=== PATIENT | male | born 1935 | race Caucasian/White ===

== ENCOUNTER 2017-12-17 13:06 | Emergency (ER) | payer MEDICARE, OTHER ==
--- NOTE | 2017-12-17 14:25 | EDM.PDOC ---
ED HPI GENERAL MEDICAL PROBLEM - General Chief Complaint: Cardiovascular Problem Stated Complaint: from clinic Time Seen by Provider: 12/17/17 14:10 Source of Information: Reports: Patient, Provider, RN History Limitations: Reports: No Limitations - History of Present Illness INITIAL COMMENTS - FREE TEXT/NARRATIVE: 82 yo male presented to the clinic today for light-headedness/mild dizziness that began this morning at the beginning of his morning walk. Says he didn't get very far and turned around and went home. No recent fever, diarrhea, melena or vomiting. He thinks he has had an irregular heart beat in the past. [place]. Here with his . Upon seeing his abnormal EKG in the clinic he was taken to the ER for further eval. Onset: Today Onset Date: 12/17/17 Onset Time: 08:30 Duration: Hour(s): Location: Reports: Head (mild dizziness, not when lying), Generalized Quality: Reports: Other (no pain) Severity: Mild Improves with: Reports: Other (lying) Worsens with: Reports: Other (walking/standing) Associated Symptoms: Reports: No Other Symptoms Treatments SMALL BUSINESS CONSULTANT: Reports: Other (see below) (none) Bilateral Shoulder Pain Score (Numeric/FACES): 1 - Related Data Allergies Allergy/AdvReac Type Severity Reaction Status Date / Time amoxicillin Allergy Rash Verified 12/17/17 13:56 Penicillins Allergy Rash Verified 12/17/17 13:56 Home Meds: Home Meds Etodolac [Etodolac] 400 mg PO BID 12/17/17 [History] Finasteride [Finasteride] 5 mg PO DAILY 12/17/17 [History] Flunisolide [Nasalide Nasal [place]] 2 spray IH BEDTIME 12/17/17 [History] Gabapentin [Neurontin] 300 mg PO BEDTIME 12/17/17 [History] Hydrochlorothiazide [Hydrochlorothiazide] 25 mg PO DAILY 12/17/17 [History] Multivitamin [Multivitamins] 1 tab PO DAILY 12/17/17 [History] Omeprazole [Omeprazole] 20 mg PO DAILY 12/17/17 [History] Psyllium Husk [Psyllium] 1 cap PO DAILY 12/17/17 [History] Tamsulosin HCl [Tamsulosin HCl] 1 cap PO DAILY 12/17/17 [History] Past Medical History HEENT History: Reports: Allergic Rhinitis, Hard of Hearing, Impaired Vision Gastrointestinal History: Reports: GERD Genitourinary History: Reports: Prostate Disorder, Renal Calculus Musculoskeletal History: Reports: Fracture Dermatologic History: Reports: Other (See Below) Other Dermatologic History: rash on face, treated - Infectious Disease History Infectious Disease History: Reports: Chicken Pox, Hepatitis A, Influenza - Past Surgical History HEENT Surgical History: Reports: Polypectomy Male Surgical History: Reports: Vasectomy Social & Family History - Tobacco Use Smoking Status *Q: Former Smoker Used Tobacco, but Quit: Yes Month Tobacco Last Used: 1961 - Caffeine Use Caffeine Use: Reports: Coffee - Recreational Drug Use Recreational Drug Use: No ED ROS GENERAL - Review of Systems Review Of Systems: See Below Constitutional: Reports: No Symptoms HEENT: Reports: No Symptoms Respiratory: Reports: No Symptoms Cardiovascular: Reports: Lightheadedness (walking/standing) Endocrine: Reports: No Symptoms GI/Abdominal: Reports: No Symptoms : Reports: No Symptoms Musculoskeletal: Reports: No Symptoms Skin: Reports: No Symptoms Neurological: Reports: No Symptoms ED EXAM, GENERAL - Physical Exam Exam: See Below Exam Limited By: No Limitations General Appearance: Alert, WD/WN, No Apparent Distress Eye Exam: Bilateral Eye: Normal Inspection, PERRL Ears: Normal External Exam, Normal Canal, Hearing Grossly Normal, Normal TMs Ear Exam: Bilateral Ear: Auricle Normal, Canal Normal, TM normal Nose: Normal Inspection, Normal Mucosa, No Blood Throat/Mouth: Normal Inspection, Normal Lips, Normal Oropharynx, Normal Voice, No Airway Compromise Head: Atraumatic, Normocephalic Neck: Normal Inspection, Supple, Non-Tender Respiratory/Chest: No Respiratory Distress, Lungs Clear, Normal Breath Sounds, No Accessory Muscle Use Cardiovascular: Irregularly Irregular GI/Abdominal: Normal Bowel Sounds, Soft, Non-Tender, No Distention Back Exam: Normal Inspection. No: CVA Tenderness (R), CVA Tenderness (L) Extremities: Normal Inspection, Normal Range of Motion, Non-Tender, No Pedal Edema Neurological: Alert, Oriented, CN II-XII Intact, Normal Cognition, No Motor/ Sensory Deficits Psychiatric: Normal Affect, Normal Mood Skin Exam: Warm, Dry, Intact, Normal Color, No Rash Lymphatic: No Adenopathy Course - Vital Signs Text/Narrative:: magnesium 400 mg po Orthostats borderline, not symptomatic Walked around the loop in the ER, no dizziness Last Recorded V/S: Last Vital Signs Temp 35.7 C 12/17/17 14:02 Pulse 70 12/17/17 14:02 Resp 10 L 12/17/17 14:02 BP 143/80 H 12/17/17 14:02 Pulse Ox 98 12/17/17 14:02 Orthostatic Blood Pressure [ 104/64 Standing] Orthostatic Blood Pressure [ 100/56 Sitting] Orthostatic Blood Pressure [ 124/64 Supine] - Orders/Labs/Meds Orders: Active Orders 24 hr Category Date Time Status Cardiac Monitoring [RC] .As Directed Care 12/17/17 14:19 Active Orthostatic Vital Signs [RC] ASDIRECTED Care 12/17/17 14:20 Active Magnesium Oxide Med 12/17/17 15:22 Once 400 mg PO ONETIME ONE Labs: Laboratory Tests 12/17/17 12/17/17 12/17/17 Range/Units 14:36 14:36 14:36 WBC 10.2 (4.5-11.0) K/uL RBC 4.77 (4.30-5.90) M/uL Hgb 15.2 H (12.0-15.0) g/dL Hct 43.5 (40.0-54.0) % MCV 91 (80-98) fL MCH 32 H (27-31) pg MCHC 35 (32-36) % Plt Count 203 (150-400) K/uL Sodium 138 L (140-148) mmol/L Potassium 4.7 (3.6-5.2) mmol/L Chloride 105 (100-108) mmol/L Carbon Dioxide 27 (21-32) mmol/L Anion Gap 10.7 (5.0-14.0) mmol/L BUN 21 H (7-18) mg/dL Creatinine 1.2 (0.8-1.3) mg/dL Est Cr Clr Drug Dosing 48.95 mL/min Estimated GFR (MDRD) 58 L (>60) Glucose 116 H (74-106) mg/dL Calcium 8.9 (8.5-10.1) mg/dL Magnesium 1.7 L (1.8-2.4) mg/dL Troponin I < 0.017 (0.000-0.056) ng/mL Departure - Departure Time of Disposition: 15:30 Disposition: Home, Self-Care 01 Condition: Good Clinical Impression: Dizziness, Premature ventricular beats, Hypomagnesemia, Hard stool Referrals: Conrado Mcclellan MD [Primary Care Provider] - Forms: ED Department Discharge - My Orders Last 24 Hours: My Active Orders 12/17/17 14:19 Cardiac Monitoring [RC] .As Directed 12/17/17 14:20 Orthostatic Vital Signs [RC] ASDIRECTED 12/17/17 15:22 Magnesium Oxide 400 mg PO ONETIME ONE - Assessment/Plan Last 24 Hours: My Active Orders 12/17/17 14:19 Cardiac Monitoring [RC] .As Directed 12/17/17 14:20 Orthostatic Vital Signs [RC] ASDIRECTED 12/17/17 15:22 Magnesium Oxide 400 mg PO ONETIME ONE
[2017-12-17] MEDS ORDERED: Magnesium Oxide 400 MG Tab PO ONE (15:22)
== END 2017-12-17 15:47 | disposition home or self-care (01) ==
LOC: JP.ED 13:06
DX: I49.3 Ventricular premature depolarization (principal); E83.42 Hypomagnesemia; K21.9 Gastro-esophageal reflux disease without esophagitis; Z88.1 Allergy status to other antibiotic agents; Z88.0 Allergy status to penicillin; Z79.899 Other long term (current) drug therapy; Z87.891 Personal history of nicotine dependence
CPT/HCPCS: 36415; 80048; 83735; 84484; 85027; 99284; A9270

== ENCOUNTER 2017-12-29 06:17 | Day surgery (SDC) | payer MEDICARE, OTHER ==
[2017-12-29] MEDS ORDERED: Sodium Chloride 0.9% 1,000 ML IV SCH (07:00)
[2017-12-29] MEDS ORDERED: fentaNYL 100 MCG/2 ML SDV ONE (07:50)
[2017-12-29] MEDS ORDERED: Propofol 200 MG/20 ML SDV ONE (07:50)
[2017-12-29] MEDS ORDERED: Midazolam 1 MG/ML 2 ML SDV ONE (07:50)
--- NOTE | 2017-12-29 10:02 | OR ---
DATE OF PROCEDURE: 12/29/2017 PROCEDURE: 1. EGD. 2. Colonoscopy. FINDINGS: 1. No evidence of old or new blood. 2. Diverticulosis, mild, limited to the sigmoid colon. 3. No other gross abnormality. COMPLICATIONS: None. SENIOR IT BUSINESS ANALYST: None. ANESTHESIA: MAC. PREOPERATIVE DIAGNOSIS: GI bleeding. POSTOPERATIVE DIAGNOSIS: GI bleeding. RISKS: Risks, benefits, alternatives, limitations including, but not limited to infection, bleeding, and perforation were explained to the patient who wished to proceed. PROCEDURE IN DETAIL: The patient was placed in left lateral decubitus position. The EGD scope was introduced and advanced atraumatically into the duodenum. Including the bulb itself, there was no evidence of ulceration or duodenitis. In the stomach, there was no gastritis, ulceration, or hiatal hernia. The GE junction showed very mild reflux but appropriate for age. The esophagus was normal. A digital rectal exam was performed without abnormality. Scope was introduced and advanced atraumatically to the ileocecal valve. The scope was brought back to the ascending, transverse, descending colon, and retroflexed. No old or new blood. No masses. No polyps. No colitis. The most likely etiology of the patient is history of GI bleeding and some very mild external hemorrhoids he had or the diverticulosis. Either way, there is no active bleeding or old bleeding at this time. The patient tolerated the procedure well. Bryce Maxwell MD /[id number]
== END 2017-12-29 10:59 | disposition home or self-care (01) ==
LOC: JP.SDS 06:17
PROVIDERS: ATTEND Surgery
DX: K57.30 Diverticulosis of large intestine without perforation or abscess without bleeding (principal); K64.4 Residual hemorrhoidal skin tags; K21.9 Gastro-esophageal reflux disease without esophagitis; I10 Essential (primary) hypertension; Z88.0 Allergy status to penicillin; Z88.1 Allergy status to other antibiotic agents
CPT/HCPCS: J2250; J2704; J3010; J7040

== ENCOUNTER 2019-02-27 10:31 | Observation (INO) | payer MEDICARE, OTHER ==
--- NOTE | 2019-02-27 11:45 | CRLCR ---
INDICATION: chest pain TECHNIQUE: Chest 1 view. COMPARISON: 05/30/15 FINDINGS: Cardiovascular and mediastinum: Heart size and vasculature are normal in caliber and appearance. Mediastinum is within normal limits. Lungs and pleural space: Lungs are clear. No sign of infiltrate or mass. No sign of pleural effusion. No pneumothorax. Bones and soft tissues: No significant findings. IMPRESSION: Unremarkable chest. Dictated by: Santo Drake MD @ 02/27/2019 11:44:58 (Electronically Signed)
[2019-02-27] MEDS ORDERED: Sodium Chloride 0.9% 10 ML Syringe FLUSH PRN (11:50)
--- NOTE | 2019-02-27 14:35 | EDM.PDOC ---
ED HPI GENERAL MEDICAL PROBLEM - General Chief Complaint: Chest Pain Stated Complaint: CHEST PAIN Time Seen by Provider: 02/27/19 10:50 Source of Information: Reports: Patient History Limitations: Reports: No Limitations - History of Present Illness INITIAL COMMENTS - FREE TEXT/NARRATIVE: pt arrived with a history of feeling dizzy at times and being quite forgetful. He had an episode of severe left chest pain . He thinks he could have passed out. When he had the pain. When he woke up he was soaked and wet. He did not have chest pain when he woke up. Onset: Today, Other ( sudden during the nite. ) Duration: Hour(s): Location: Reports: Chest Associated Symptoms: Reports: Chest Pain, Diaphoresis - Related Data Allergies Allergy/AdvReac Type Severity Reaction Status Date / Time amoxicillin Allergy Rash Verified 02/27/19 13:09 Penicillins Allergy Rash Verified 02/27/19 13:09 Home Meds: Home Meds Multivitamin [Multivitamins] 1 tab PO DAILY 12/17/17 [History] Omeprazole 20 mg PO DAILY 12/17/17 [History] Tamsulosin HCl 1 cap PO DAILY 12/17/17 [History] hydroCHLOROthiazide [Hydrochlorothiazide] 25 mg PO DAILY 12/17/17 [History] Magnesium Oxide 500 mg PO DAILY 12/27/17 [History] Psyllium Husk [Psyllium] 1 cap PO DAILY 12/27/17 [History] Finasteride 5 mg PO DAILY 12/29/17 [History] Melatonin/Pyridoxine HCl (B6) [Melatonin 3 mg Tablet] 1 each PO BEDTIME [History] Past Medical History HEENT History: Reports: Allergic Rhinitis, Hard of Hearing, Impaired Vision Gastrointestinal History: Reports: GERD Genitourinary History: Reports: Prostate Disorder, Renal Calculus Musculoskeletal History: Reports: Fracture Neurological History: Reports: None Dermatologic History: Reports: Other (See Below) Other Dermatologic History: rash on face, treated - Infectious Disease History Infectious Disease History: Reports: Chicken Pox, Hepatitis A, Measles, Mumps - Past Surgical History HEENT Surgical History: Reports: Polypectomy GI Surgical History: Reports: Colonoscopy, EGD Male Surgical History: Reports: Vasectomy Neurological Surgical History: Reports: Lumbar Spine Social & Family History - Family History Family Medical History: Noncontributory - Tobacco Use Smoking Status *Q: Never Smoker - Caffeine Use Caffeine Use: Reports: Coffee - Recreational Drug Use Recreational Drug Use: Yes ED ROS GENERAL - Review of Systems Review Of Systems: See Below Constitutional: Reports: No Symptoms HEENT: Reports: No Symptoms Respiratory: Reports: No Symptoms Cardiovascular: Reports: Chest Pain Endocrine: Reports: No Symptoms GI/Abdominal: Reports: No Symptoms : Reports: No Symptoms Musculoskeletal: Reports: Other (pt has severe left sided chest pain) ED EXAM, GENERAL - Physical Exam Exam: See Below Free Text/Narrative:: pt arrived with pain in the left chest which occurred during the nite. Exam Limited By: No Limitations General Appearance: Alert, No Apparent Distress, Anxious, Other (pupils are equal and reactive. ) Ears: Normal TMs Nose: Normal Inspection Throat/Mouth: Normal Inspection Head: Atraumatic Neck: Normal Inspection Respiratory/Chest: No Respiratory Distress Cardiovascular: Regular Rate, Rhythm GI/Abdominal: Soft, Non-Tender (Male) Exam: Deferred Rectal (Males) Exam: Deferred Back Exam: Normal Inspection Extremities: Normal Inspection Neurological: Alert, Oriented, Normal Cognition Psychiatric: Normal Affect Course - Vital Signs Last Recorded V/S: Last Vital Signs Temp 35.5 C 02/27/19 10:48 Pulse 62 02/27/19 10:48 Resp 14 02/27/19 10:48 BP 144/56 H 02/27/19 10:48 Pulse Ox 99 02/27/19 10:48 - Orders/Labs/Meds Orders: Active Orders 24 hr Category Date Time Status Cardiac Monitoring [RC] .As Directed Care 02/27/19 10:55 Active EKG Documentation Completion [RC] ASDIRECTED Care 02/27/19 11:03 Active Sodium Chloride 0.9% [Saline Flush] Med 02/27/19 11:50 Active 10 ml FLUSH ASDIRECTED PRN Saline Lock Insert [OM.PC] Routine Oth 02/27/19 11:50 Ordered EKG 12 Lead [EK] Routine Ther 02/27/19 11:03 Ordered Medication Orders Sodium Chloride (Saline Flush) 10 ml FLUSH ASDIRECTED PRN PRN Reason: Keep Vein Open Last Admin: 02/27/19 13:16 Dose: 10 ml Labs: Laboratory Tests 02/27/19 02/27/19 02/27/19 Range/Units 11:07 11:07 11:07 WBC 4.8 (4.5-11.0) K/uL RBC 4.26 L (4.30-5.90) M/uL Hgb 13.4 (12.0-15.0) g/dL Hct 39.6 L (40.0-54.0) % MCV 93 (80-98) fL MCH 32 H (27-31) pg MCHC 34 (32-36) % Plt Count 216 (150-400) K/uL Neut % (Auto) 53 (36-66) % Lymph % (Auto) 31 (24-44) % [place] % (Auto) 14 H (2-6) % Eos % (Auto) 2 (2-4) % Baso % (Auto) 1 (0-1) % Sodium 137 L (140-148) mmol/L Potassium 3.9 (3.6-5.2) mmol/L Chloride 103 (100-108) mmol/L Carbon Dioxide 28 (21-32) mmol/L Anion Gap 9.9 (5.0-14.0) mmol/L BUN 12 (7-18) mg/dL Creatinine 1.1 (0.8-1.3) mg/dL Est Cr Clr Drug Dosing 48.75 mL/min Estimated GFR (MDRD) > 60 (>60) Glucose 120 H (74-106) mg/dL Calcium 9.0 (8.5-10.1) mg/dL Magnesium (1.8-2.4) mg/dL Total Bilirubin 0.5 (0.2-1.0) mg/dL AST 28 (15-37) U/L ALT 24 (12-78) U/L Alkaline Phosphatase 64 (46-116) U/L Troponin I < 0.017 (0.000-0.056) ng/mL Total Protein 6.7 (6.4-8.2) g/dL Albumin 3.2 L (3.4-5.0) g/dL Globulin 3.5 (2.3-3.5) g/dL Albumin/Globulin Ratio 0.9 L (1.2-2.2) Urine Color Urine Appearance Urine pH (4.5-8.0) Ur Specific [place] (1.008-1.030) Urine Protein (NEGATIVE) mg/dL Urine Glucose (UA) (NEGATIVE) mg/dL Urine Ketones (NEGATIVE) mg/dL Urine Occult Blood (NEGATIVE) Urine Nitrite (NEGAITVE) Urine Bilirubin (NEGATIVE) Urine Urobilinogen (NORMAL) mg/dL Ur Leukocyte Esterase (NEGATIVE) Urine RBC (0-5) Urine WBC (0-5) Ur Epithelial Cells Amorphous Sediment Urine Bacteria Urine Mucus 02/27/19 02/27/19 02/27/19 Range/Units 11:35 12:27 13:55 WBC (4.5-11.0) K/uL RBC (4.30-5.90) M/uL Hgb (12.0-15.0) g/dL Hct (40.0-54.0) % MCV (80-98) fL MCH (27-31) pg MCHC (32-36) % Plt Count (150-400) K/uL Neut % (Auto) (36-66) % Lymph % (Auto) (24-44) % [place] % (Auto) (2-6) % Eos % (Auto) (2-4) % Baso % (Auto) (0-1) % Sodium (140-148) mmol/L Potassium (3.6-5.2) mmol/L Chloride (100-108) mmol/L Carbon Dioxide (21-32) mmol/L Anion Gap (5.0-14.0) mmol/L BUN (7-18) mg/dL Creatinine (0.8-1.3) mg/dL Est Cr Clr Drug Dosing mL/min Estimated GFR (MDRD) (>60) Glucose (74-106) mg/dL Calcium (8.5-10.1) mg/dL Magnesium 1.8 (1.8-2.4) mg/dL Total Bilirubin (0.2-1.0) mg/dL AST (15-37) U/L ALT (12-78) U/L Alkaline Phosphatase (46-116) U/L Troponin I < 0.017 (0.000-0.056) ng/mL Total Protein (6.4-8.2) g/dL Albumin (3.4-5.0) g/dL Globulin (2.3-3.5) g/dL Albumin/Globulin Ratio (1.2-2.2) Urine Color Yellow Urine Appearance Clear Urine pH 7.0 (4.5-8.0) Ur Specific [place] 1.015 (1.008-1.030) Urine Protein Negative (NEGATIVE) mg/dL Urine Glucose (UA) Normal (NEGATIVE) mg/dL Urine Ketones Negative (NEGATIVE) mg/dL Urine Occult Blood Negative (NEGATIVE) Urine Nitrite Negative (NEGAITVE) Urine Bilirubin Negative (NEGATIVE) Urine Urobilinogen Normal (NORMAL) mg/dL Ur Leukocyte Esterase Negative (NEGATIVE) Urine RBC Not seen (0-5) Urine WBC 0-5 (0-5) Ur Epithelial Cells Not seen Amorphous Sediment Not seen Urine Bacteria Not seen Urine Mucus Not seen Meds: Medications Generic Name Dose Route Start Last Admin Trade Name Freq PRN Reason Stop Dose Admin Sodium Chloride 10 ml 02/27/19 11:50 02/27/19 13:16 Saline Flush FLUSH 10 ml ASDIRECTED PRN Administration Keep Vein Open - Re-Assessments/Exams Free Text/Narrative Re-Assessment/Exam: 02/27/19 14:36 ekg shows bigeminal pvcs with a effective rate of 30 at times. He has a normal trop. His other labs look good. Departure - Departure Time of Disposition: 14:51 Disposition: Admitted As Inpatient 65 Condition: Fair Clinical Impression: Ventricular bigeminy, Bradyarrhythmia, Chest pain Referrals: PCP,None [Primary Care Provider] - Care Plan Goals: admit to Dr tavarez. - My Orders Last 24 Hours: My Active Orders 02/27/19 10:55 Cardiac Monitoring [RC] .As Directed 02/27/19 11:03 EKG Documentation Completion [RC] ASDIRECTED EKG 12 Lead [EK] Routine 02/27/19 11:50 Sodium Chloride 0.9% [Saline Flush] 10 ml FLUSH ASDIRECTED PRN Saline Lock Insert [OM.PC] Routine - Assessment/Plan Last 24 Hours: My Active Orders 02/27/19 10:55 Cardiac Monitoring [RC] .As Directed 02/27/19 11:03 EKG Documentation Completion [RC] ASDIRECTED EKG 12 Lead [EK] Routine 02/27/19 11:50 Sodium Chloride 0.9% [Saline Flush] 10 ml FLUSH ASDIRECTED PRN Saline Lock Insert [OM.PC] Routine
--- NOTE | 2019-02-27 15:16 | PCM.HP ---
H&P History of Present Illness - General Date of Service: 02/27/19 Admit Problem/Dx: Admission Diagnosis/Problem Admission Diagnosis/Problem Chest pain Source of Information: Patient, Provider History Limitations: Reports: No Limitations - History of Present Illness Initial Comments - Free Text/Narative: Keyon presents to the emergency room today following an episode of chest pain last night. He reports that he has been in his usual state of health. Last night he woke up in the middle of the night to check on his . After getting a drink of water and returning to bed he developed very mild chest pain that he has difficulty describing. This was located in the left lower portion of his chest near the nipple. He thinks the pain was therefore a couple of minutes. He didn't notice shortness of breath or nausea at the time. He's not quite sure if he fell back to sleep or if he passed out. He woke up a while later but not sure how much later and realized that he was extremely diaphoretic and had to change out of his shirt and pants. He has not had recurrence of the chest pain since that time. The pain was so short lived he didn't have a chance to take anything for it. He's never had pain like this in the past. He walks 1/2-1 mile at least once a day unless the weather is bad. He has never had shortness of breath or dyspnea with this exertion. No nausea or abdominal pain. No sick contacts or travel. He feels well but his daughter urged him to come in and get checked out. Workup in the emergency room has revealed bigeminy on EKG and cardiac monitoring. His heart rates been in the 60s. Laboratory studies are all very reassuring including 2 troponin levels that have been negative. Initially there was some concern that the PVCs were not perfusing but currently they are perfusing very well. He will be admitted for observation. - Related Data Allergies/Adverse Reactions: Allergies Allergy/AdvReac Type Severity Reaction Status Date / Time amoxicillin Allergy Rash Verified 02/27/19 13:09 Penicillins Allergy Rash Verified 02/27/19 13:09 Home Medications: Home Meds Multivitamin [Multivitamins] 1 tab PO DAILY 12/17/17 [History] Omeprazole 20 mg PO DAILY 12/17/17 [History] Tamsulosin HCl 1 cap PO DAILY 12/17/17 [History] hydroCHLOROthiazide [Hydrochlorothiazide] 25 mg PO DAILY 12/17/17 [History] Magnesium Oxide 500 mg PO DAILY 12/27/17 [History] Psyllium Husk [Psyllium] 1 cap PO DAILY 12/27/17 [History] Finasteride 5 mg PO DAILY 12/29/17 [History] Melatonin/Pyridoxine HCl (B6) [Melatonin 3 mg Tablet] 1 each PO BEDTIME [History] Past Medical History HEENT History: Reports: Allergic Rhinitis, Hard of Hearing, Impaired Vision Gastrointestinal History: Reports: GERD Genitourinary History: Reports: Prostate Disorder, Renal Calculus Musculoskeletal History: Reports: Fracture Neurological History: Reports: None Dermatologic History: Reports: Other (See Below) Other Dermatologic History: rash on face, treated - Infectious Disease History Infectious Disease History: Reports: Chicken Pox, Hepatitis A, Measles, Mumps - Past Surgical History HEENT Surgical History: Reports: Polypectomy GI Surgical History: Reports: Colonoscopy, EGD Male Surgical History: Reports: Vasectomy Neurological Surgical History: Reports: Lumbar Spine Social & Family History - Family History Family Medical History: Noncontributory - Tobacco Use Smoking Status *Q: Never Smoker - Caffeine Use Caffeine Use: Reports: Coffee - Alcohol Use Alcohol Use History: Yes Alcohol Use in Last Twelve Months: Yes Alcohol Use Frequency: Monthly - Recreational Drug Use Recreational Drug Use: Yes H&P Review of Systems - Review of Systems: Review Of Systems: See Below Free Text/Narrative: A complete 12 point review of systems was obtained. Pertinent positives and negatives are noted in the history of present illness. All other systems were reviewed and were negative except as noted. Exam - Exam Exam: See Below - Vital Signs Vital Signs: Last Vital Signs Temp 35.5 C 02/27/19 10:48 Pulse 67 02/27/19 15:08 Resp 15 02/27/19 15:08 BP 119/71 02/27/19 15:08 Pulse Ox 96 02/27/19 15:08 Weight: 68.946 kg - Exam Quality Assessment: No: Supplemental Oxygen General: Alert, Oriented, Cooperative. No: Mild Distress HEENT: Conjunctiva Clear, Mucosa Moist & [place]. No: Scleral Icterus Neck: Supple, Trachea Midline. No: Lymphadenopathy Lungs: Clear to Auscultation, Normal Respiratory Effort Cardiovascular: Regular Rate, Irregular Rhythm. No: Systolic Murmur GI/Abdominal Exam: Normal Bowel Sounds, Soft, Non-Tender, No Distention Back Exam: Normal Inspection, Full Range of Motion Extremities: No Pedal Edema. No: Increased Warmth Peripheral Pulses: 2+: Dorsalis Pedis (L), Dorsalis Pedis (R) Skin: Warm, Dry Neuro Extensive - Mental Status: Alert, Oriented x3, Nl Response to Commands Neuro Extensive - Motor, Sensory, Reflexes: CN II-XII Intact. No: Dysarthria, Abnormal Motor, Tremor Psychiatric: Alert, Normal Affect - Patient Data Lab Results Last 24 hrs: Laboratory Results - last 24 hr 02/27/19 02/27/19 02/27/19 Range/Units 11:07 11:07 11:07 WBC 4.8 (4.5-11.0) K/uL RBC 4.26 L (4.30-5.90) M/uL Hgb 13.4 (12.0-15.0) g/dL Hct 39.6 L (40.0-54.0) % MCV 93 (80-98) fL MCH 32 H (27-31) pg MCHC 34 (32-36) % Plt Count 216 (150-400) K/uL Neut % (Auto) 53 (36-66) % Lymph % (Auto) 31 (24-44) % [place] % (Auto) 14 H (2-6) % Eos % (Auto) 2 (2-4) % Baso % (Auto) 1 (0-1) % Sodium 137 L (140-148) mmol/L Potassium 3.9 (3.6-5.2) mmol/L Chloride 103 (100-108) mmol/L Carbon Dioxide 28 (21-32) mmol/L Anion Gap 9.9 (5.0-14.0) mmol/L BUN 12 (7-18) mg/dL Creatinine 1.1 (0.8-1.3) mg/dL Est Cr Clr Drug Dosing 48.75 mL/min Estimated GFR (MDRD) > 60 (>60) Glucose 120 H (74-106) mg/dL Calcium 9.0 (8.5-10.1) mg/dL Magnesium (1.8-2.4) mg/dL Total Bilirubin 0.5 (0.2-1.0) mg/dL AST 28 (15-37) U/L ALT 24 (12-78) U/L Alkaline Phosphatase 64 (46-116) U/L Troponin I < 0.017 (0.000-0.056) ng/mL Total Protein 6.7 (6.4-8.2) g/dL Albumin 3.2 L (3.4-5.0) g/dL Globulin 3.5 (2.3-3.5) g/dL Albumin/Globulin Ratio 0.9 L (1.2-2.2) Urine Color Urine Appearance Urine pH (4.5-8.0) Ur Specific [place] (1.008-1.030) Urine Protein (NEGATIVE) mg/dL Urine Glucose (UA) (NEGATIVE) mg/dL Urine Ketones (NEGATIVE) mg/dL Urine Occult Blood (NEGATIVE) Urine Nitrite (NEGAITVE) Urine Bilirubin (NEGATIVE) Urine Urobilinogen (NORMAL) mg/dL Ur Leukocyte Esterase (NEGATIVE) Urine RBC (0-5) Urine WBC (0-5) Ur Epithelial Cells Amorphous Sediment Urine Bacteria Urine Mucus 02/27/19 02/27/19 02/27/19 Range/Units 11:35 12:27 13:55 WBC (4.5-11.0) K/uL RBC (4.30-5.90) M/uL Hgb (12.0-15.0) g/dL Hct (40.0-54.0) % MCV (80-98) fL MCH (27-31) pg MCHC (32-36) % Plt Count (150-400) K/uL Neut % (Auto) (36-66) % Lymph % (Auto) (24-44) % [place] % (Auto) (2-6) % Eos % (Auto) (2-4) % Baso % (Auto) (0-1) % Sodium (140-148) mmol/L Potassium (3.6-5.2) mmol/L Chloride (100-108) mmol/L Carbon Dioxide (21-32) mmol/L Anion Gap (5.0-14.0) mmol/L BUN (7-18) mg/dL Creatinine (0.8-1.3) mg/dL Est Cr Clr Drug Dosing mL/min Estimated GFR (MDRD) (>60) Glucose (74-106) mg/dL Calcium (8.5-10.1) mg/dL Magnesium 1.8 (1.8-2.4) mg/dL Total Bilirubin (0.2-1.0) mg/dL AST (15-37) U/L ALT (12-78) U/L Alkaline Phosphatase (46-116) U/L Troponin I < 0.017 (0.000-0.056) ng/mL Total Protein (6.4-8.2) g/dL Albumin (3.4-5.0) g/dL Globulin (2.3-3.5) g/dL Albumin/Globulin Ratio (1.2-2.2) Urine Color Yellow Urine Appearance Clear Urine pH 7.0 (4.5-8.0) Ur Specific [place] 1.015 (1.008-1.030) Urine Protein Negative (NEGATIVE) mg/dL Urine Glucose (UA) Normal (NEGATIVE) mg/dL Urine Ketones Negative (NEGATIVE) mg/dL Urine Occult Blood Negative (NEGATIVE) Urine Nitrite Negative (NEGAITVE) Urine Bilirubin Negative (NEGATIVE) Urine Urobilinogen Normal (NORMAL) mg/dL Ur Leukocyte Esterase Negative (NEGATIVE) Urine RBC Not seen (0-5) Urine WBC 0-5 (0-5) Ur Epithelial Cells Not seen Amorphous Sediment Not seen Urine Bacteria Not seen Urine Mucus Not seen Result Diagrams: 02/27/19 11:07 02/27/19 11:07 Imaging Impressions Last 24 hrs: CXR - images personally reviewed - lungs are clear, heart size is normal. No mass or effusion. EKG INTERPRETATION EKG Date: 02/27/19 Rhythm: Other (bigeminy) Rate (Beats/Min): 62 [place]: Normal P-Wave: Variable QRS: Normal ST-T: Normal QT: Normal Comparison: NA - No Prior EKG EKG Interpretation Comments: The EKG image was personally reviewed but I could not find one for comparison *Q Meaningful Use (ADM) - VTE Risk Assess *Q Each Risk Factor Represents 1 Point: None Total Score 1 Point Risk Factors: 0 Each Risk Factor Represents 2 Points: None Total Score 2 Point Risk Factors: 0 Each Risk Factor Represents 3 Points: Age 75 Years or Greater Total Score 3 Point Risk Factors: 3 Each Risk Factor Represents 5 Points: None Total Score 5 Point Risk Factors: 0 Venous Thromboembolism Risk Factor Score *Q: 3 - Problem List (1) Chest pain SNOMED Code(s): 02028070 ICD Code: R07.9 - CHEST PAIN, UNSPECIFIED Status: Acute Current Visit: Yes Qualifiers: Chest pain type: precordial pain Qualified Code(s): R07.2 - Precordial pain (2) Ventricular bigeminy SNOMED Code(s): 99279904 ICD Code: I49.9 - CARDIAC ARRHYTHMIA, UNSPECIFIED Status: Acute Current Visit: Yes Problem List Initiated/Reviewed/Updated: Yes Orders Last 24hrs: Active Orders 24 hr Category Date Time Status Patient Status Manage Transfer [TRANSFER] Routine ADT 02/27/19 15:09 Ordered Cardiac Monitoring [RC] .As Directed Care 02/27/19 10:55 Active EKG Documentation Completion [RC] ASDIRECTED Care 02/27/19 11:03 Active Sodium Chloride 0.9% [Saline Flush] Med 02/27/19 11:50 Active 10 ml FLUSH ASDIRECTED PRN Saline Lock Insert [OM.PC] Routine Oth 02/27/19 11:50 Ordered Resuscitation Status Routine Resus Stat 02/27/19 15:11 Ordered EKG 12 Lead [EK] Routine Ther 02/27/19 11:03 Ordered Medication Orders Sodium Chloride (Saline Flush) 10 ml FLUSH ASDIRECTED PRN PRN Reason: Keep Vein Open Last Admin: 02/27/19 13:16 Dose: 10 ml Assessment/Plan Comment:: ASSESSMENT AND PLAN - Chest pain - this sounds like atypical chest pain but was accompanied by an episode of possible syncope and significant diaphoresis. He has a good functional status and 2 negative troponin so I don't believe this represents an acute coronary syndrome. Arrhythmia is certainly high on the list at this time with either a tachycardic or bradycardic dysrhythmia. He has bigeminy on EKG cardiac monitoring but appears to be perfusing well and asymptomatic at this time. He does not have a history of heart disease. -Cardiac monitoring -3rd troponin -Consider outpatient Holter if no dysrhythmia discovered BPH - Symptoms stable -Continue home meds Essential hypertension - Blood pressure normal and electrolytes stable. -Continue home meds Maintenance issues - - DVT prophylaxis - patient will be ambulatory - GI prophylaxis - Not indicated - Nutrition - Regular - [place] catheter - Not indicated CODE STATUS - Full code Admission justification - Patient will be referred observation status for cardiac monitoring Disposition - I would anticipate discharge home tomorrow Primary care physician - IRENE Sherwood M.D.
[2019-02-27] MEDS ORDERED: Ondansetron 4 MG Tab.DIS PO PRN (16:21)
[2019-02-27] MEDS ORDERED: Acetaminophen 325 MG Tab PO PRN (16:21)
[2019-02-27] MEDS ORDERED: Melatonin 3 MG Tab PO SCH (21:00)
--- NOTE | 2019-02-28 08:53 | PCM.DCSUM1 ---
Discharge Summary - Hospital Course Brief History: 83-year-old male with history of BPH and hypertension who presented the morning after having an episode of chest pain and diaphoresis. He was admitted for chest pain rule out and cardiac monitoring. Diagnosis: Stroke: No - Discharge Data Discharge Date: 02/28/19 Discharge Disposition: Home, Self-Care 01 Condition: Good - Discharge Diagnosis/Problem(s) (1) Chest pain SNOMED Code(s): 18110957 ICD Code: R07.9 - CHEST PAIN, UNSPECIFIED Status: Acute Qualifiers: Chest pain type: precordial pain Qualified Code(s): R07.2 - Precordial pain (2) Ventricular bigeminy SNOMED Code(s): 63647790 ICD Code: I49.9 - CARDIAC ARRHYTHMIA, UNSPECIFIED Status: Acute - Patient Summary/Data Hospital Course: Keyon presented to the emergency room the morning after having an episode of mild chest pain and diaphoresis the night before. Workup in the emergency room was reassuring other than bigeminy noted on his telemetry monitoring. Blood pressure was stable. 2 troponin levels were unremarkable. With the bigeminy and the significant episode of diaphoresis he was admitted for cardiac monitoring and additional observation. A third troponin level came back undetectable. Overnight he remained in bigeminy with a stable heart rate around 60. It did rise slightly with activity. He has been asymptomatic. He has not had any chest pain or diaphoresis. He has been up and walking around without any difficulty. He does not have any palpitations with the bigeminy. He has no history of heart disease. We discussed potential additional workup either in the hospital or as an outpatient. I don't believe he needs a stress test at this point because he can walk a mile with no limitations. We did discuss the possibility of an echocardiogram but at this point he feels well and does not wish to pursue any more testing. He was agreeable to additional testing if he has additional episodes or develops symptoms. He will be following up with his primary care at the [place] as needed if symptoms return. - Patient Instructions Diet: Regular Diet as Tolerated Activity: As Tolerated Driving: May Drive Today Showering/Bathing: May Shower Notify Provider of: Fever, Increased Pain, Nausea and/or Vomiting Other/Special Instructions: 1. You were in the hospital for observation after an episode of chest pain with diaphoresis. We found that you have a heart rhythm called bigeminy where you have a regular heartbeat followed by an early beat. This pattern repeats itself over and over. There is no particular treatment necessary at this time. If you develop symptoms of palpitations or if you have recurrent chest pain then we should further investigate your coronary arteries (stress test) and heart structure (echocardiogram). 2. Continue your usual medications as previously prescribed. 3. Seek medical attention if fever greater than 101, chest pain, significant shortness of breath or palpitations. - Discharge Plan *PRESCRIPTION DRUG MONITORING PROGRAM REVIEWED*: Not Applicable *COPY OF PRESCRIPTION DRUG MONITORING REPORT IN PATIENT MYRNA: Not Applicable Home Medications: Home Meds Multivitamin [Multivitamins] 1 tab PO DAILY 12/17/17 [History] Omeprazole 20 mg PO DAILY 12/17/17 [History] Tamsulosin HCl 1 cap PO DAILY 12/17/17 [History] hydroCHLOROthiazide [Hydrochlorothiazide] 25 mg PO DAILY 12/17/17 [History] Magnesium Oxide 500 mg PO DAILY 12/27/17 [History] Psyllium Husk [Psyllium] 1 cap PO DAILY 12/27/17 [History] Finasteride 5 mg PO DAILY 12/29/17 [History] Melatonin/Pyridoxine HCl (B6) [Melatonin 3 mg Tablet] 1 each PO BEDTIME [History] Oxygen Therapy Mode: Room Air Patient Handouts: Palpitations Referrals: PCP,None [Primary Care Provider] - [facility] - Discharge Summary/Plan Comment DC Time >30 min.: No - Patient Data Vitals - Most Recent: Last Vital Signs Temp 35.1 C L 02/28/19 07:28 Pulse 62 02/28/19 07:28 Resp 14 02/28/19 07:28 BP 139/67 02/28/19 07:28 Pulse Ox 97 02/28/19 07:28 Weight - Most Recent: 68.946 kg I&O - Last 24 hours: Intake & Output 02/27/19 02/28/19 02/28/19 22:59 06:59 14:59 Intake Total 240 Balance 240 Lab Results - Last 24 hrs: Laboratory Results - last 24 hr 02/27/19 02/27/19 02/27/19 Range/Units 11:07 11:07 11:07 WBC 4.8 (4.5-11.0) K/uL RBC 4.26 L (4.30-5.90) M/uL Hgb 13.4 (12.0-15.0) g/dL Hct 39.6 L (40.0-54.0) % MCV 93 (80-98) fL MCH 32 H (27-31) pg MCHC 34 (32-36) % Plt Count 216 (150-400) K/uL Neut % (Auto) 53 (36-66) % Lymph % (Auto) 31 (24-44) % [place] % (Auto) 14 H (2-6) % Eos % (Auto) 2 (2-4) % Baso % (Auto) 1 (0-1) % Sodium 137 L (140-148) mmol/L Potassium 3.9 (3.6-5.2) mmol/L Chloride 103 (100-108) mmol/L Carbon Dioxide 28 (21-32) mmol/L Anion Gap 9.9 (5.0-14.0) mmol/L BUN 12 (7-18) mg/dL Creatinine 1.1 (0.8-1.3) mg/dL Est Cr Clr Drug Dosing 48.75 mL/min Estimated GFR (MDRD) > 60 (>60) Glucose 120 H (74-106) mg/dL Calcium 9.0 (8.5-10.1) mg/dL Magnesium (1.8-2.4) mg/dL Total Bilirubin 0.5 (0.2-1.0) mg/dL AST 28 (15-37) U/L ALT 24 (12-78) U/L Alkaline Phosphatase 64 (46-116) U/L Troponin I < 0.017 (0.000-0.056) ng/mL Total Protein 6.7 (6.4-8.2) g/dL Albumin 3.2 L (3.4-5.0) g/dL Globulin 3.5 (2.3-3.5) g/dL Albumin/Globulin Ratio 0.9 L (1.2-2.2) Urine Color Urine Appearance Urine pH (4.5-8.0) Ur Specific [place] (1.008-1.030) Urine Protein (NEGATIVE) mg/dL Urine Glucose (UA) (NEGATIVE) mg/dL Urine Ketones (NEGATIVE) mg/dL Urine Occult Blood (NEGATIVE) Urine Nitrite (NEGAITVE) Urine Bilirubin (NEGATIVE) Urine Urobilinogen (NORMAL) mg/dL Ur Leukocyte Esterase (NEGATIVE) Urine RBC (0-5) Urine WBC (0-5) Ur Epithelial Cells Amorphous Sediment Urine Bacteria Urine Mucus 02/27/19 02/27/19 02/27/19 Range/Units 11:35 12:27 13:55 WBC (4.5-11.0) K/uL RBC (4.30-5.90) M/uL Hgb (12.0-15.0) g/dL Hct (40.0-54.0) % MCV (80-98) fL MCH (27-31) pg MCHC (32-36) % Plt Count (150-400) K/uL Neut % (Auto) (36-66) % Lymph % (Auto) (24-44) % [place] % (Auto) (2-6) % Eos % (Auto) (2-4) % Baso % (Auto) (0-1) % Sodium (140-148) mmol/L Potassium (3.6-5.2) mmol/L Chloride (100-108) mmol/L Carbon Dioxide (21-32) mmol/L Anion Gap (5.0-14.0) mmol/L BUN (7-18) mg/dL Creatinine (0.8-1.3) mg/dL Est Cr Clr Drug Dosing mL/min Estimated GFR (MDRD) (>60) Glucose (74-106) mg/dL Calcium (8.5-10.1) mg/dL Magnesium 1.8 (1.8-2.4) mg/dL Total Bilirubin (0.2-1.0) mg/dL AST (15-37) U/L ALT (12-78) U/L Alkaline Phosphatase (46-116) U/L Troponin I < 0.017 (0.000-0.056) ng/mL Total Protein (6.4-8.2) g/dL Albumin (3.4-5.0) g/dL Globulin (2.3-3.5) g/dL Albumin/Globulin Ratio (1.2-2.2) Urine Color Yellow Urine Appearance Clear Urine pH 7.0 (4.5-8.0) Ur Specific [place] 1.015 (1.008-1.030) Urine Protein Negative (NEGATIVE) mg/dL Urine Glucose (UA) Normal (NEGATIVE) mg/dL Urine Ketones Negative (NEGATIVE) mg/dL Urine Occult Blood Negative (NEGATIVE) Urine Nitrite Negative (NEGAITVE) Urine Bilirubin Negative (NEGATIVE) Urine Urobilinogen Normal (NORMAL) mg/dL Ur Leukocyte Esterase Negative (NEGATIVE) Urine RBC Not seen (0-5) Urine WBC 0-5 (0-5) Ur Epithelial Cells Not seen Amorphous Sediment Not seen Urine Bacteria Not seen Urine Mucus Not seen 02/27/19 Range/Units 19:15 WBC (4.5-11.0) K/uL RBC (4.30-5.90) M/uL Hgb (12.0-15.0) g/dL Hct (40.0-54.0) % MCV (80-98) fL MCH (27-31) pg MCHC (32-36) % Plt Count (150-400) K/uL Neut % (Auto) (36-66) % Lymph % (Auto) (24-44) % [place] % (Auto) (2-6) % Eos % (Auto) (2-4) % Baso % (Auto) (0-1) % Sodium (140-148) mmol/L Potassium (3.6-5.2) mmol/L Chloride (100-108) mmol/L Carbon Dioxide (21-32) mmol/L Anion Gap (5.0-14.0) mmol/L BUN (7-18) mg/dL Creatinine (0.8-1.3) mg/dL Est Cr Clr Drug Dosing mL/min Estimated GFR (MDRD) (>60) Glucose (74-106) mg/dL Calcium (8.5-10.1) mg/dL Magnesium (1.8-2.4) mg/dL Total Bilirubin (0.2-1.0) mg/dL AST (15-37) U/L ALT (12-78) U/L Alkaline Phosphatase (46-116) U/L Troponin I < 0.017 (0.000-0.056) ng/mL Total Protein (6.4-8.2) g/dL Albumin (3.4-5.0) g/dL Globulin (2.3-3.5) g/dL Albumin/Globulin Ratio (1.2-2.2) Urine Color Urine Appearance Urine pH (4.5-8.0) Ur Specific [place] (1.008-1.030) Urine Protein (NEGATIVE) mg/dL Urine Glucose (UA) (NEGATIVE) mg/dL Urine Ketones (NEGATIVE) mg/dL Urine Occult Blood (NEGATIVE) Urine Nitrite (NEGAITVE) Urine Bilirubin (NEGATIVE) Urine Urobilinogen (NORMAL) mg/dL Ur Leukocyte Esterase (NEGATIVE) Urine RBC (0-5) Urine WBC (0-5) Ur Epithelial Cells Amorphous Sediment Urine Bacteria Urine Mucus Med Orders - Current: Current Medications Acetaminophen (Tylenol) 650 mg PO Q4H PRN PRN Reason: Pain (Mild 1-3)/fever Finasteride (Proscar) 5 mg PO DAILY [facility] Hydrochlorothiazide (Hydrochlorothiazide) 25 mg PO DAILY [facility] Magnesium Oxide (Magnesium Oxide) 400 mg PO DAILY [facility] Melatonin (Melatonin) 6 mg PO BEDTIME [facility] Last Admin: 02/27/19 20:45 Dose: 6 mg (Omeprazole [ Omeprazole] 20 Mg)* Nf* 20 mg PO DAILY [facility] Ondansetron HCl (Zofran Odt) 4 mg PO Q6H PRN PRN Reason: Nausea able to take PO Psyllium Husk (Metamucil Sugar Free) 1 pkt PO DAILY [facility] Sodium Chloride (Saline Flush) 10 ml FLUSH ASDIRECTED PRN PRN Reason: Keep Vein Open Last Admin: 02/27/19 13:16 Dose: 10 ml Tamsulosin HCl (Flomax) 0.4 mg PO DAILY [facility] - Exam Quality Assessment: Denies: Supplemental Oxygen General: Reports: Alert, Oriented, Cooperative, No Acute Distress Lungs: Reports: Normal Respiratory Effort Cardiovascular: Reports: Regular Rate, Irregular Rhythm, Other (bigeminy) GI/Abdominal Exam: Soft, No Distention Extremities: No Pedal Edema. No: Increased Warmth Psy/Mental Status: Reports: Alert, Normal Affect
[2019-02-28] MEDS ORDERED: Psyllium Husk Powder Sugar Free 5.85 GM Packet PO SCH (09:00)
[2019-02-28] MEDS ORDERED: Hydrochlorothiazide 25 MG Tab PO SCH (09:00)
[2019-02-28] MEDS ORDERED: Finasteride 5 MG Tab PO SCH (09:00)
[2019-02-28] MEDS ORDERED: Magnesium Oxide 400 MG Tab PO SCH (09:00)
[2019-02-28] MEDS ORDERED: Tamsulosin 0.4 MG Cap.ER PO SCH (09:00)
== END 2019-02-28 09:04 | disposition home or self-care (01) ==
LOC: JP.ED 10:31 → JP.ICU 15:09
PROVIDERS: ADMIT Internal Medicine; ATTEND Internal Medicine
DX: R07.2 Precordial pain (principal); I49.3 Ventricular premature depolarization; K21.9 Gastro-esophageal reflux disease without esophagitis; N42.9 Disorder of prostate, unspecified; Z88.0 Allergy status to penicillin; Z79.899 Other long term (current) drug therapy
CPT/HCPCS: 36415; 71045; 80053; 81001; 83735; 84484; 85025; 93005; 99285; A9270; 93010

== ENCOUNTER 2022-01-15 01:16 | Emergency (ER) | payer MEDICARE, OTHER ==
[2022-01-15] MEDS ORDERED: fentaNYL 100 MCG/2 ML SDV IVPUSH ONE (02:05)
[2022-01-15] MEDS ORDERED: Sodium Chloride 0.9% 1,000 ML IV SCH (02:15)
[2022-01-15] MEDS ORDERED: Magnesium Citrate Solution 296 ML Bottle PO ONE (03:36)
== END 2022-01-15 04:00 | disposition home or self-care (01) ==
LOC: JP.ED 01:16
DX: K59.00 Constipation, unspecified (principal); K21.9 Gastro-esophageal reflux disease without esophagitis; Z87.891 Personal history of nicotine dependence; Z79.899 Other long term (current) drug therapy; Z88.0 Allergy status to penicillin
CPT/HCPCS: 36415; 74176; 80053; 81001; 82272; 83605; 83690; 85025; 96374; 99282; 99284; A9270; J3010; J7030

== ENCOUNTER 2022-01-18 12:06 | Emergency (ER) | payer MEDICARE, OTHER ==
[2022-01-18] MEDS: Ibuprofen 400 MG Tab PO ONE (12:36)
[2022-01-18] MEDS: Acetaminophen/HYDROcodone 325-5 MG Tab PO ONE (13:14)
== END 2022-01-18 14:57 | disposition home or self-care (01) ==
LOC: JP.ED 12:06
DX: M54.50 Low back pain, unspecified (principal); K59.00 Constipation, unspecified; K21.9 Gastro-esophageal reflux disease without esophagitis; Z88.0 Allergy status to penicillin; Z79.82 Long term (current) use of aspirin; Z79.899 Other long term (current) drug therapy
CPT/HCPCS: 74019; 74019-26; 99282; 99284; A9270-GY

== ENCOUNTER 2022-12-19 23:22 | Emergency (ER) | payer MEDICARE, OTHER ==
[2022-12-19] MEDS ORDERED: Lidocaine 1% 5 ML VIAL INJECT ONE (23:32)
[2022-12-19] MEDS ORDERED: Bacitracin Oint 1 GM U/D Packet TOP ONE (23:33)
[2022-12-20] MEDS ORDERED: Diphtheria,Pertussis(Acell),Tetanus Vaccine 0.5 ML Syringe IM ONE (00:03)
== END 2022-12-20 01:20 | disposition home or self-care (01) ==
LOC: JP.ED 23:22
DX: S01.111A Laceration without foreign body of right eyelid and periocular area, initial encounter (principal); I25.10 Atherosclerotic heart disease of native coronary artery without angina pectoris; N40.1 Benign prostatic hyperplasia with lower urinary tract symptoms; I10 Essential (primary) hypertension; E87.1 Hypo-osmolality and hyponatremia; D64.9 Anemia, unspecified; R00.1 Bradycardia, unspecified; I44.0 Atrioventricular block, first degree; E78.5 Hyperlipidemia, unspecified; F03.90 Unspecified dementia, unspecified severity, without behavioral disturbance, psychotic disturbance, mood disturbance, and anxiety; M19.90 Unspecified osteoarthritis, unspecified site; Z88.0 Allergy status to penicillin; Z79.82 Long term (current) use of aspirin; Z79.899 Other long term (current) drug therapy; W18.30XA Fall on same level, unspecified, initial encounter; Y92.002 Bathroom of unspecified non-institutional (private) residence as the place of occurrence of the external cause
CPT/HCPCS: 12013; 36415; 70450; 80048; 85025; 90471; 90715; 93005; 93010; 99284-25; 99285